=== PATIENT | male | born 2000 | race Caucasian/White ===

== ENCOUNTER 2020-07-18 16:47 | Outpatient (CLI) | payer OTHER, SELFPAY | END 2020-07-18 16:48 | disposition home or self-care (01) | LOC: ANHLAB 16:52 | PROVIDERS: PCP Family Medicine; Visit Provider Internal Medicine Gastroenterology | DX: R19.4 Change in bowel habit (principal) | CPT/HCPCS: 87045; 87046; 87177; 87209; 87324; 87427 ==

== ENCOUNTER 2021-05-30 12:18 | Emergency (ER) | payer OTHER, SELFPAY ==
[2021-05-30 12:25] VITALS: BP 139/96; PULSE 91; RESP 16; TEMP 36.2; O2SAT 99
--- NOTE | 2021-05-30 12:32 | ED.WOUNDLAC ---
HPI - Wound/Laceration History of Present Illness HPI narrative: Healthy 21 yo male presents [facility] c/ laceration. He was using a chainsaw today when it kiscked back and hit his right wong. He suffered a large laceration to the wong. He has moderate pain. Bleeding controlled. No weakness, numbness. Unknown when last tetanus shot was. Related Data Allergies Allergy/AdvReac Type Severity Reaction Status Date / Time Penicillins Allergy Unknown Verified 05/30/21 12:34 Review of Systems Review of Systems: All systems reviewed & are unremarkable except as noted in HPI and below [facility] Social History Social History (Updated 06/01/21 @ 15:12 by Dani Feliciano MD) Smoking status: Never smoker Gender identity (if verbalized by the patient): Male Exam Const: General: healthy appearing, no acute distress and alert Orientation/consciousness: patient oriented x3 HENMT: Head: normal to inspection Neck: Neck: normal visual inspection Resp: Effort & Inspection: normal respiratory effort Auscultation: clear to auscultation bilaterally, no rales, no rhonchi and no wheezes Cardio: Jugular venous distension: no JVD Rate: regular rate Rhythm: regular rhythm Heart sounds: no murmurs Other: 2+ right DP Skin: General skin exam: normal color Other: Complex 5 cm laceration to anterior aspect of the right lower leg Neuro: General: patient oriented x3 and moves all extremities Speech: normal speech Gait exam (Neuro): Normal gait present Other: distal motor and sensory intact Extrem: General: no edema Other: Full ROm. No deformity Psych: Appearance: well kempt Affect: normal affect Course Vital Signs Vital signs: Vital Signs Temperature 36.2 C L 05/30/21 12:25 Pulse Rate 91 05/30/21 12:25 Respiratory Rate 16 05/30/21 12:25 Blood Pressure 139/96 H 05/30/21 12:25 Pulse Oximetry 99 05/30/21 12:25 Temperature 36.2 C L 05/30/21 12:25 Pulse Rate 92 05/30/21 14:30 Respiratory Rate 16 05/30/21 14:30 Blood Pressure 136/90 05/30/21 14:30 Pulse Oximetry 99 05/30/21 14:30 Procedures Laceration Laceration 1: Site: lower extremity Side (If applicable): right Size (cm): 5 Description: irregular, contaminated and other (complex) Depth: involves muscle layer Local Anesthetic: lidocaine 1% and with epi Amount of anesthesia used (mL): 10 Pre-repair: wound explored, irrigated extensively (500 ml) and minor debridement ====== Skin Level ====== Skin layer closed with: nylon Size (cm): 4-0 Number of sutures: 14 Technique: simple, interrupted and running ====== Subcutaneous Layer ====== Subcutaneous layer closed with: vicryl Size: 4-0 Number of sutures: 9 Technique: simple, interrupted ====== Muscle Layer ====== Muscle layer closed with: vicryl Size: 4-0 Number of sutures: 2 Technique: simple, interrupted ====== Tendon Layer ====== MDM - Wound/Laceration MDM Narrative Medical decision making narrative: On exam there was minor involvement of the tibia. I wanted an x-ray, but he did not want to stay. I will treat with keflex for prophylaxis. Tetanus updated. Differential Diagnosis Differential diagnosis: Likely laceration Medical Records Attestation: I reviewed the patient's medical records. Discharge Plan Discharge Clinical Impression: Laceration of lower leg Patient Disposition: Home, Self-Care Condition: Stable Instructions: Care For Your Stitches (ED), Laceration (ED) Additional Instructions: follow up for suture removal in 2 weeks Prescriptions: New hydrocodone-acetaminophen 5-325 mg tablet 1 tablet PO Q6H PRN (Reason: pain) Qty: 5 RF: 0 clindamycin HCl 300 mg capsule 300 mg PO BID 7 Days Qty: 14 RF: 0 Follow-up/Referrals: Fernando Scott MD [Primary Care Provider] -
[2021-05-30] MEDS: CLINDAMYCIN HCL 150 MG CAP 300 MG PO (14:18)
[2021-05-30] MEDS: TETANUS,DIPHTHERIA,AC PERTUSSIS ADULT (0.5 ML) BOOSTRIX IM (14:18)
[2021-05-30 14:30] VITALS: BP 136/90; PULSE 92; RESP 16; O2SAT 99
--- NOTE | 2021-07-06 09:12 | PC.NURSE ---
LATE ENTRY This note is being entered to document information to the patient's record. The following information was omitted on [05/30/21], by [Oliva Nair ]. Incorrect wound injury location documented. Correct location should be Right lower wong not left.
== END 2021-05-30 14:31 | disposition home or self-care (01) ==
PROVIDERS: Emergency Provider Emergency Medicine; PCP Family Medicine
DX: S86.921A Laceration of unspecified muscle(s) and tendon(s) at lower leg level, right leg, initial encounter (principal); Z23 Encounter for immunization; W29.3XXA Contact with powered garden and outdoor hand tools and machinery, initial encounter
CPT/HCPCS: 13121; 90471; 90715; 96372; 99283; A9270

== ENCOUNTER 2021-12-25 15:49 | Emergency (ER) | payer OTHER, SELFPAY ==
--- NOTE | ~2021-12-25 | US_ITS ---
EXAMINATION: US scrotum doppler DATE: 12/25/2021 16:29 INDICATION: Testicular injury. TECHNIQUE: Grayscale and Doppler ultrasound images of the testes were obtained. COMPARISON: None. FINDINGS: The right testis measures 4.6 x 3.0 x 2.5 cm. The left testis measures 5.0 x 3.0 x 2.2 cm. There is normal vascular flow to both testes. Medial to the right testis, there is a 2.6 x 1.7 cm het erogeneous hyperechoic and isoechoic mass. The right epididymis is normal with normal vascular flow. The left epididymis is normal with normal vascular flow. There is no varicocele or hydrocele. IMPRESSION: 1. Mass medial to the right testis, likely a hematoma. Reviewed, dictated and finalized at location A.
--- NOTE | ~2021-12-25 | CT_ITS ---
EXAMINATION: CT abdomen pelvis w con DATE: 12/25/2021 17:15 INDICATION: Right pelvic pain. Trauma. TECHNIQUE: Computed tomography (CT) of the abdomen and pelvis was performed with 100 mL Omnipaque 350 intravenous contrast. Automated exposure control and iterative reconstruction technique were employe d. The dose-length product was 333.49 mGy-cm. COMPARISON: None. FINDINGS: The visualized portions of the lung bases are clear without pneumonia or pleural effusion. The heart size is normal. No pericardial effusion. The liver, gallbladder, spleen, pancreas, adrenal glands, and kidneys are normal. There are no dilated loops of bowel. The appendix is normal. There ar e no pathologically enlarged lymph nodes. There is no free intraperitoneal fluid. There is fat strand ing in the right inguinal canal and visualized portion of the scrotum. There is no fracture. IMPRESSION: 1. Fat stranding in the right inguinal canal and visualized portion of the scrotum, consistent with h ematoma. Reviewed, dictated and finalized at location A. IMPRESSION: 1. Fat stranding in the right inguinal canal and visualized portion of the scro lino, consistent with hematoma.
[2021-12-25 15:59] VITALS: BP 137/73; PULSE 80; RESP 16; TEMP 37.9; O2SAT 98
[2021-12-25] MEDS: MORPHINE SULFATE (*CRX) 4 MG/ML INJ IV PUSH (16:35)
[2021-12-25] MEDS: SODIUM CHLORIDE 0.9% IV 1,000 ML 999 ML IV CONT (16:35)
[2021-12-25 16:38] LABS: Basophils Percent Auto 0.6 % (0.2-1.2); Eosinophils Absolute Auto 0.1 K/mm3 (0-0.3); Eosinophils Percent Auto 1.1 % (0-4.4); Hematocrit 44.4 % (42.0-52.0); Hemoglobin 15.2 g/dL (14.0-18.0); Immature Granulocyte Absolute 0.02 K/mm3 (0.00-0.031); Immature Granulocyte Percent A 0.3 % (0-0.5); Lymphocytes Absolute Auto 2.64 K/mm3 (0.9-3.2); Lymphocytes Percent Auto 36.5 % (18.3-44.2); Mean Corpuscular HGB Conc 34.2 g/dl (32-36); Mean Corpuscular Volume 90.4 fl (80-100); Mean Platelet Volume 9.1 fl (7.4-10.4); Monocytes Absolute Auto 0.5 K/mm3 (0.1-0.6); Monocytes Percent Auto 6.9 % (2.6-8.5); Neutrophils Percent Auto 54.6 % (45.5-73.1); Platelet Count Result 218 k/mm3 (150-375); Red Blood Count 4.91 M/mm3 (4.6-6.20); Red Cell Distribution Width 12.8 % (11.5-14.5); White Blood Count 7.2 K/mm3 (4.5-10.0)
[2021-12-25 16:46] VITALS: BP 135/84; PULSE 89; RESP 18; O2SAT 99
[2021-12-25 16:50] LABS: Alanine Aminotransferase 17 U/L (4-50); Albumin Level 4.6 g/dL (3.5-5.1); Alkaline Phosphatase 49 U/L (38-126); Anion Gap 8 mmol/L (8-16); Aspartate Amino Transferase 30 U/L (17-59); Bilirubin,Total 0.7 mg/dL (0.2-1.3); Blood Urea Nitrogen 18 mg/dL (9-20); Calcium 8.9 mg/dL (8.4-10.2); Carbon Dioxide 27 mmol/L (22-30); Chloride 104 mmol/L (98-107); Creatine Kinase 159 U/L (55-170); Estimated CRCL calculation 123 ml/min; Estimated Glomerular Filt Rate > 60; Glucose 136 mg/dL (65-110); Potassium 4.1 mmol/L (3.4-5.0); Prothrombin Time 13.1 Seconds (11.1-14.7); Sodium 139 mmol/L (137-145)
[2021-12-25 16:51] LABS: Partial Thromboplastin Time 24.2 SECONDS (22.3-36.8)
[2021-12-25 17:57] LABS: Add Urine Microscopic? YES; Appearance Urine Cloudy (Clear); Bacteria Urine Trace /hpf; Bilirubin Urine Negative (Negative); Blood Urine Negative (Negative); Color Urine Yellow (Yellow); Glucose Urine UA Negative (Negative); Ketones Urine Negative (Negative); Leukocyte Esterase Ur Negative LEU/UL (Negative); Nitrate Urine Negative (Negative); Protein Urine Negative (Negative); Urobilinogen Urine Negative mg/dL (<2.0)
[2021-12-25 17:58] LABS: Specific Grav Ur 1.042 (1.001-1.035)
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
[2021-12-25 18:48] VITALS: TEMP 37
== END 2021-12-25 19:17 | disposition home or self-care (01) ==
PROVIDERS: Emergency Provider Emergency Medicine; PCP Family Medicine
DX: S30.22XA Contusion of scrotum and testes, initial encounter (principal); W23.0XXA Caught, crushed, jammed, or pinched between moving objects, initial encounter
CPT/HCPCS: 36415; 74177; 76870; 80053; 81001; 82550; 85025; 85610; 85730; 87086; 93976; 96361; 96374; 99284; J2270; J7030; Q9967

== ENCOUNTER 2023-06-26 14:04 | Emergency (ER) | payer OTHER, SELFPAY ==
--- NOTE | 2023-06-26 14:29 | ED.MALEGU ---
HPI - Male Genitourinary General Chief complaint: Urogenital-Male Stated complaint: poss std exposure Time Seen by Provider: 06/26/23 14:40 Source: patient and RN notes reviewed Mode of arrival: ambulatory Limitations: no limitations History of Present Illness HPI Narrative: 23-year-old male presents with concern for exposure to chlamydia. He was informed that a partner he was with about 2 weeks ago tested positive for chlamydia. He denies any dysuria, penile discharge, abdominal pain, fever or any other symptoms. MD Complaint: possible STD exposure Related Data Allergies Allergy/AdvReac Type Severity Reaction Status Date / Time Penicillins AdvReac Mild Hives Verified 06/26/23 14:43 Review of Systems Review of Systems: CONSTITUTIONAL: Denies malaise, chills, sweats, or fever. CARDIOVASCULAR: Denies chest pain, palpitations, or edema. RESPIRATORY: Denies cough or dyspnea. GASTROINTESTINAL: Denies abdominal pain, nausea, vomiting, diarrhea GENITOURINARY: My dysuria, frequency, urgency, suprapubic pressure, penile discharge or lesions. Denies flank pain or hematuria. SKIN: Denies rash or itching. MUSCULOSKELETAL: Denies back pain or myalgia. All systems reviewed & are unremarkable except as noted in HPI and below PMFSH Comments At time of signature, agree with nursing past medical, surgical, social and family history. There is no relevant family history pertinent to the presenting complaint Exam Narrative: GENERAL: Well-appearing, well-nourished, and in no acute distress. HEAD: Normocephalic. EYES: PERRLA, conjunctivae clear. NECK: Supple. No lymphadenopathy CHEST: Clear to auscultation. No respiratory distress. HEART: Regular rate and rhythm. SKIN: Warm, dry, no rash. NEURO: Alert and oriented x3. PSYCH: Normal mood and affect Course Course Emergency Course: Patient only wants to be treated for chlamydia today, he understands that he may need to return for an injection if he is positive for gonorrhea Patient is aware of diagnosis, understands and agrees to treatment plan. Anticipatory guidance given. Patient agrees to follow-up as directed and is aware of reasons to seek care at the emergency department. Portions of this record may have been created with voice recognition software Level of Care: Express Care Visit Vital Signs Vital signs: Reviewed. Critical Care Time Critical Care Time Critical Care Time: No Discharge Plan Discharge Clinical Impression: Exposure to STD Patient Disposition: Home, Self-Care Condition: Stable Instructions: Antibiotic Form, Safe Sex Practices (ED) Additional Instructions: You have been tested for potential gonorrhea, chlamydia, and trichomoniasis today. A prescription has been called into your pharmacy to treat chlamydia. You will receive a phone call in 2-3 days with the results of today's testing and if any further treatment is required able be prescribed at that time, you may need to return for an injection.. It is very important that you avoid unprotected intercourse during treatment and for 7 days AFTER TREATMENT is complete and until your partner(s) have been treated. Please encourage your partner(s) to seek testing and treatment. When you have been exposed to sexually transmitted infections, it is important that you seek comprehensive testing, since we do not provide testing for all sexually transmitted infections. Some infections can have no symptoms, but cause serious health problems. Contact your health care provider or report to the emergency department if: You have genital swelling or pain, or unusual bleeding. You have joint pain, rash, swollen lymph nodes or night sweats. You are severe abdominal pain. You have a fever. Symptoms do not go away or they get worse even after treatment. You have bleeding or pain during sex. Prescriptions: New doxycycline monohydrate 100 mg tablet 100 mg PO BID 7 Days Qty: 14 0RF Follow-up/Referrals:
[2023-06-26 14:30] VITALS: BP 124/68; PULSE 73; RESP 16; TEMP 36.8; O2SAT 99
[2023-06-26 20:22] LABS: Trichomonas Vag PCR NOT DETECTED (NOT DETECTE)
[2023-06-26 20:47] LABS: Chlamydia trachomatis NOT DETECTED (NOT DETECTE); Neisseria gonorrhoeae PCR NOT DETECTED (NOT DETECTE)
== END 2023-06-26 14:52 | disposition home or self-care (01) ==
PROVIDERS: Emergency Provider Nurse Practitioner; PCP Family Medicine
DX: Z20.2 Contact with and (suspected) exposure to infections with a predominantly sexual mode of transmission (principal)
CPT/HCPCS: 81003; 87491; 87591; 87661; 99203; G0463

== ENCOUNTER 2024-05-11 12:56 | Emergency (ER) | payer OTHER, SELFPAY ==
[2024-05-11 13:06] VITALS: BP 125/69; PULSE 66; RESP 18; TEMP 36.6; O2SAT 98
--- NOTE | 2024-05-11 13:11 | ED.ABDPAIN ---
HPI - Abdominal Pain General Chief Complaint: Abdominal Pain Stated Complaint: abdominal pain Time Seen by Provider: 05/11/24 13:11 Source: patient, RN notes reviewed and old records reviewed Mode of arrival: ambulatory Limitations: no limitations History of Present Illness HPI narrative: patient presents with complaints of left lower quadrant pain for 2 days, worsening. He reports pain awakened him from sleep, reports that he is having difficulty standing up straight at work due to his pain, is having tenderness to palpation. He further reports that he has had change in bowel pattern over the past couple of days, small frequent bowel movements. Reports this is not normal for him. He denies any nausea or vomiting. He denies any fever, chills, sweats. Patient does work trimming trees, he denies any injury or trauma, including abdominal trauma. Related Data Home Medications Medication Instructions Recorded Confirmed No Home Medications 05/11/24 05/11/24 Allergies Allergy/AdvReac Type Severity Reaction Status Date / Time Penicillins Allergy Mild Hives Verified 05/11/24 13:17 Review of Systems Review of Systems: All systems reviewed & are unremarkable except as noted in HPI and below Constitutional: Constitutional: Reports no additional constitutional complaints ENT: Reports system reviewed and no additional complaints, except as documented Cardiovascular: Cardiovascular: Reports no additional cardiovascular complaints Respiratory: Respiratory: Reports no additional respiratory complaints Gastrointestinal: Gastrointestinal: Reports as per HPI, Reports abdominal pain, Reports change in bowel habits, Reports change in stool character, Reports excessive flatus, Denies diarrhea, Reports loose stools, Denies nausea and Denies vomiting Genitourinary: Genitourinary: Reports no additional male genitourinary complaints PMFSH Past Medical History Medical History Patient denies significant medical history Social History Social History Smoking status: Never smoker Gender identity (if verbalized by the patient): Male Comments At the time of my signature, I reviewed and agree with the nursing past medical, surgical, social, and family history. There is no relevant family history pertinent to the patient complaint. Exam Const: General: cooperative, no acute distress, alert and awake Orientation/consciousness: oriented to person, oriented to place and oriented to time HENMT: Head: normal to inspection Resp: Effort & Inspection: normal respiratory effort and able to speak in complete sentences Auscultation: clear to auscultation bilaterally, no crackles, no rales, no rhonchi and no wheezes Cardio: Palpation: normal PMI Rate: regular rate Rhythm: regular rhythm Heart sounds: S1 normal heart sound present and S2 normal heart sound present GI: Inspection: normal to inspection GI Palp: Yes abdominal tenderness (llq), Yes Tenderness to palpation present (GI) (LLQ) and Yes Guarding due to palpation present (GI) (LLQ) Auscultation: Hypoactive bowel sounds present Neuro: General: oriented to person, oriented to place and oriented to time Cranial nerves: Yes CN's II-XII intact bilaterally Psych: Appearance: grossly normal Thought process: Normal thought process present Insight: Good insight present (Psych) Judgement: Good judgement present (Psych) Course Course Level of Care: Express Care Visit Vital Signs Vital signs: Vital Signs Temperature 98 F 05/11/24 13:06 Pulse Rate 66 05/11/24 13:06 Respiratory Rate 18 05/11/24 13:06 Blood Pressure 125/69 05/11/24 13:06 Pulse Oximetry 98 05/11/24 13:06 Oxygen Delivery Room Air 05/11/24 13:06 Temperature 98 F 05/11/24 13:06 Pulse Rate 66 05/11/24 13:06 Respiratory Rate 18 05/11/24 13:06 Blood Pressure 125/69 05/11/24 13:0
== END 2024-05-11 13:30 | disposition left against medical advice (07) ==
PROVIDERS: Emergency Provider Nurse Practitioner Family; PCP Family Medicine
DX: R10.32 Left lower quadrant pain (principal)
CPT/HCPCS: 99211; G0463

== ENCOUNTER 2024-05-11 13:45 | Emergency (ER) | payer OTHER, SELFPAY ==
--- NOTE | ~2024-05-11 | CT_ITS ---
EXAMINATION: CT abdomen pelvis w con DATE: 05/11/2024 14:59 INDICATION: Left lower quadrant abdominal pain. TECHNIQUE: Computed tomography (CT) of the abdomen and pelvis was performed with 100 mL Omnipaque 350 intravenous contrast. Automated exposure control and iterative reconstruction technique were employe d. The dose-length product was 450.27 mGy-cm. COMPARISON: None. FINDINGS: The visualized portions of the lung bases demonstrate mild atelectasis. No pleural effusion . The heart size is normal. No pericardial effusion. The liver, gallbladder, spleen, pancreas, adrena l glands, and kidneys are normal. There are no dilated loops of bowel. There is fat stranding around an epiploic appendage of sigmoid colon, consistent with epiploic appendagitis. The appendix is normal . There are no pathologically enlarged lymph nodes. There is no free intraperitoneal fluid. There is mild chronic anterior wedging of T11 and T12 vertebral bodies. IMPRESSION: 1. Epiploic appendagitis of the sigmoid colon. Reviewed, dictated and finalized at location A.
[2024-05-11 13:46] VITALS: BP 126/86; PULSE 66; RESP 16; TEMP 36.7; O2SAT 99
--- NOTE | 2024-05-11 14:13 | ED.ABDPAIN ---
HPI - Abdominal Pain General Chief Complaint: Abdominal Pain Stated Complaint: LLQ pain Time Seen by Provider: 05/11/24 13:54 History of Present Illness HPI narrative: 24-year-old male presented to the emergency department for evaluation for 2 days of left lower quadrant pain. Patient denies any associated nausea vomiting constipation or diarrhea. Patient denies any prior history of abdominal surgeries. Patient denies any prior similar pain. Related Data Home Medications Medication Instructions Recorded Confirmed No Home Medications 05/11/24 05/11/24 Allergies Allergy/AdvReac Type Severity Reaction Status Date / Time Penicillins Allergy Mild Hives Verified 05/11/24 13:17 Review of Systems Review of Systems: All systems reviewed & are unremarkable except as noted in HPI and below PMFSH Past Medical History Medical History Patient denies significant medical history Social History Social History Smoking status: Never smoker Gender identity (if verbalized by the patient): Male Exam Narrative: APPEARANCE: Well appearing, no pain, no distress, well-nourished. HEAD: normocephalic, atraumatic. EYES: PERRLA/EOMI, conjunctivae clear. NOSE: Normal no drainage EARS:TMS clear with good light reflex. THROAT: Pharynx clear, no exudate. NECK: Supple. No adenopathy, no masses. RESPIRATORY: Airway patent, respirations nonlabored. Clear to auscultation bilaterally, no rales, rhonchi, wheezing. CARDIOVASCULAR: Regular rate and rhythm without murmurs rubs or gallops. ABDOMINAL: Left lower quadrant tenderness to palpation MUSCULOSKELETAL: Moves all extremities. Strength/ROM intact, No edema, No calf tenderness. NEURO: Alert. Cranial nerves II through XII intact. Grossly intact SKIN: Warm, dry. Normal Color Course Course Emergency Course: Patient was diagnosed with epiploic appendagitis, updated on the results of his workup and treatment plan for home. Vital Signs Vital signs: Vital Signs Temperature 98.1 F 05/11/24 13:46 Pulse Rate 66 05/11/24 13:46 Respiratory Rate 16 05/11/24 13:46 Blood Pressure 126/86 05/11/24 13:46 Pulse Oximetry 99 05/11/24 13:46 Oxygen Delivery Room Air 05/11/24 13:46 Temperature 98.1 F 05/11/24 13:46 Pulse Rate 70 05/11/24 15:27 Respiratory Rate 18 05/11/24 15:27 Blood Pressure 130/77 05/11/24 15:27 Pulse Oximetry 100 05/11/24 15:27 Oxygen Delivery Room Air 05/11/24 13:46 MDM - Abdominal Pain MDM Narrative Medical decision making narrative: 24-year-old male presents to the emergency department for evaluation of 2 days of left lower quadrant pain. Patient is afebrile with no ptosis and a stable hemoglobin of 16.6. Patient has no acute abnormalities on his CMP. UA was negative for infection. Patient does have reproducible left lower quadrant tenderness to palpation. CT scan was ordered to evaluate for colitis/diverticulitis/appendicitis. CT scan was positive for epiploic appendagitis. Patient was updated on the results of his workup. Patient was advised on treatment plan for home. All questions concerns were addressed. Patient was well-appearing at time of discharge. Differential Diagnosis Differential diagnosis: Likely abdominal pain, constipation, diverticulitis, gastroenteritis, pancreatitis and small bowel obstruction Lab Data Attestation: I reviewed the patient's lab results. 05/11/24 14:04 05/11/24 14:04 Labs: Lab Results 05/11/24 05/11/24 Range/Units 14:04 14:09 WBC 9.9 (4.5-10.0) K/mm3 RBC 5.31 (4.6-6.20) M/mm3 Hgb 16.6 (14.0-18.0) g/dL Hct 47.6 (42.0-52.0) % MCV 89.6 (80-100) fl MCH 31.3 (26-34) pg MCHC 34.9 (32-36) g/dl RDW 12.2 (11.5-14.5) % Plt Count 196 (150-375) k/mm3 MPV 9.4 (7.4-10.4) fl Immature Gran % (Auto) 0.3 (0-0.
[2024-05-11 14:18] LABS: Basophils Absolute Auto 0.1 K/mm3 (0.0-0.1); Basophils Percent Auto 0.7 % (0.2-1.2); Eosinophils Absolute Auto 0.2 K/mm3 (0-0.3); Eosinophils Percent Auto 1.5 % (0-4.4); Hematocrit 47.6 % (42.0-52.0); Hemoglobin 16.6 g/dL (14.0-18.0); Immature Granulocyte Absolute 0.03 K/mm3 (0.00-0.031); Immature Granulocyte Percent A 0.3 % (0-0.5); Lymphocytes Percent Auto 25.4 % (18.3-44.2); Mean Corpuscular HGB Conc 34.9 g/dl (32-36); Mean Corpuscular Hemoglobin 31.3 pg (26-34); Mean Corpuscular Volume 89.6 fl (80-100); Mean Platelet Volume 9.4 fl (7.4-10.4); Monocytes Absolute Auto 0.7 K/mm3 (0.1-0.6); Monocytes Percent Auto 6.9 % (2.6-8.5); Neutrophils Absolute Auto 6.4 K/mm3 (1.3-6.7); Neutrophils Percent Auto 65.2 % (45.5-73.1); Platelet Count Result 196 k/mm3 (150-375); Red Blood Count 5.31 M/mm3 (4.6-6.20); Red Cell Distribution Width 12.2 % (11.5-14.5); White Blood Count 9.9 K/mm3 (4.5-10.0)
[2024-05-11 14:19] LABS: Appearance Urine Clear (Clear); Bilirubin Urine Negative (Negative); Blood Urine Negative (Negative); Color Urine Yellow (Yellow); Glucose Urine UA Negative (Negative); Ketones Urine Negative (Negative); Leukocyte Esterase Ur Negative LEU/UL (Negative); Nitrate Urine Negative (Negative); Protein Urine Negative (Negative); Urobilinogen Urine 0.2 mg/dL (<2.0)
[2024-05-11 14:19] LABS: Alanine Aminotransferase 39 U/L (6-50); Albumin Level 4.7 g/dL (3.5-5.1); Alkaline Phosphatase 66 U/L (38-126); Anion Gap 10 mmol/L (4-12); Aspartate Amino Transferase 27 U/L (17-59); Bilirubin,Total 0.9 mg/dL (0.2-1.3); Blood Urea Nitrogen 13 mg/dL (9-20); Calcium 9.4 mg/dL (8.4-10.2); Carbon Dioxide 24 mmol/L (22-30); Chloride 102 mmol/L (98-107); Estimated CRCL calculation 120 ml/min; Estimated Glomerular Filt Rate > 60; Glucose 93 mg/dL (65-110); Lipase 27 U/L (23-300); Sodium 136 mmol/L (137-145)
[2024-05-11 14:35] LABS: Add Urine Microscopic? NO
[2024-05-11 15:27] VITALS: BP 130/77; PULSE 70; RESP 18; O2SAT 100
== END 2024-05-11 15:28 | disposition home or self-care (01) ==
PROVIDERS: Emergency Provider Emergency Medicine; PCP Family Medicine
DX: K63.89 Other specified diseases of intestine (principal)
CPT/HCPCS: 36415; 74177; 80053; 81003; 83690; 85025; 99284; Q9967

== ENCOUNTER 2024-10-01 12:02 | Emergency (ER) | payer SELFPAY ==
--- NOTE | ~2024-10-01 | CT_ITS ---
EXAMINATION: CT chest abdomen pelvis w con DATE: 10/01/2024 13:24 INDICATION: Fall from roof with left flank pain TECHNIQUE: Computed tomography (CT) of the chest, abdomen, and pelvis was performed with 100 mL Omnip aque-350 intravenous contrast. Automated exposure control and iterative reconstruction technique were employed. The dose-length product was 970.26 mGy-cm. COMPARISON: None FINDINGS: CHEST CT: Tiny ovoid collection of gas along the inferior right major fissure which could represent a minute pn eumothorax or small pneumatocele new since the prior study. Few additional tiny foci of gas along the anterior mediastinal fat anterior to the heart and posterior to the sternum. Tiny focus of gas along the medial margin of the left posterior lower lobe which appears more likely in the mediastinal spac e and in the left pleural space. Tiny focus of gas posterior to the wall of the left mainstem bronchu s. Minimal atelectasis at the posterior sulcus of the left lower lobe. No pneumonia, pulmonary edema, pulmonary hemorrhage, pleural effusion or left-sided pneumothorax. Heart size is normal. No pericard ial effusion. Thoracic aorta is normal in caliber with no evident acute traumatic aortic injury. Ther e is small amount of residual thymic tissue in the anterior mediastinum. No pathologically enlarged t horacic lymphadenopathy. Minimal thoracic spondylosis with chronic appearing mild anterior wedging at T11 and T12. No rib fractures or other acute osseous abnormality in the thorax. ABDOMEN/PELVIS CT: Mild focal hepatic steatosis along the ligamentum teres. Gallbladder, spleen, pancreas, bilateral adr enal glands and kidneys are normal. Bowels including the appendix are normal. Bladder is normal. No f ree intraperitoneal gas or fluid. No pathologically enlarged abdominal or pelvic lymphadenopathy. Vas culature in the abdomen and pelvis is unremarkable. A couple small bilateral periacetabular bone mason nds. No acute osseous abnormality. IMPRESSION: 1. Tiny focus of gas along the right major fissure consistent with a minute right pneumothorax versus small pneumatocele. 2. Additional tiny foci of gas along the anterior mediastinum, the posterior mediastinum along the me dial margin of the left lower lobe and posterior the left mainstem bronchus. Distribution suggests mi nimal pneumomediastinum potentially related to tracheal versus less likely esophageal injury. 3. No acute vascular injury or acute intra-abdominal/pelvic process. 4. No acute osseous abnormality of the chest, abdomen or pelvis. Reviewed, dictated and finalized at location A. CTURED CABLING TECHNICIAN IMPRESSION: 1. Tiny focus of gas along the right major fissure consistent with a minute rig ht pneumothorax versus small pneumatocele. 2. Additional tiny foci of gas along the anterior mediastinum, the posterior me diastinum along the medial margin of the left lower lobe and posterior the left mainstem bronchus. Distribution suggests minimal pneumomediastinum potentially related to tracheal versus less likely esophageal injury. 3. No acute vascular injury or acute intra-abdominal/pelvic process. 4. No acute osseous abnormality of the chest, abdomen or pelvis.
--- NOTE | ~2024-10-01 | XR_ITS ---
XR wrist RT min 3V 10/01/2024 13:30 Indication: Right wrist pain after fall from roof Procedure: 3 views right wrist Comparison: No prior studies for comparison. Findings: There is a mildly displaced radial styloid fracture. No other fracture is identified. Scaph oid intact. No soft tissue abnormality. Impression: 1: Mildly displaced radial styloid fracture. Reviewed, dictated and finalized at location B. INE REPAIRER MAINTENANCE Impression: 1: Mildly displaced radial styloid fracture.
--- NOTE | ~2024-10-01 | XR_ITS ---
XR wrist LT min 3V 10/01/2024 13:30 Indication: Left wrist pain after fall Procedure: 3 views left wrist Comparison: No prior studies for comparison. Findings: There is a comminuted displaced distal radial fracture with intra-articular extension. Ther e are multiple displaced fracture fragments dorsally with dorsal tilt of the radiocarpal joint. There is a displaced ulnar styloid fracture Impression: 1: Comminuted displaced distal radial fracture with intra-articular extension. 2: Displaced ulnar styloid fracture. Reviewed, dictated and finalized at location B. RIAL CONTROL MANAGER Impression: 1: Comminuted displaced distal radial fracture with intra-articular extension. 2: Displaced ulnar styloid fracture.
--- NOTE | ~2024-10-01 | CT_ITS ---
EXAMINATION: CT brain wo con, CT facial & cervical spine wo DATE: 10/01/2024 13:24 INDICATION: Trauma EXAMINATION: 1. CT brain wo con 2. CT facial & cervical spine wo DATE: 10/01/2024 13:24 INDICATION: Head injury post fall from roof TECHNIQUE: 1. Computed tomography (CT) of the head was performed without intravenous contrast. Sagittal and arash nal reconstructions were obtained. The dose-length product was 605.33 mGy-cm. 2. CT of the facial bones and maxillofacial region was performed without intravenous contrast. Sagitt al and coronal reconstructions were obtained. The dose-length product was 434.96 mGy-cm. COMPARISON: None. FINDINGS: Head CT: No calvarial fracture. No acute intracranial hemorrhage, acute infarction or abnormal extra axial flu id collection. Ventricles are normal and symmetric. No mass/mass effect. Maxillofacial CT: Left zygomaticomaxillary complex fracture with comminuted fractures occurring at 3 locations along th e left zygomatic arch. There is no displacement but mild angulation resulting in inward buckling of t he midportion of the arch. Additional subtle nondisplaced fracture lines are seen involving the anter ior and lateral julien of the left maxillary sinus and the lateral and inferior julien of the left orbi t. Orbits remain otherwise normal with intact appearing globes and no intraorbital stranding, hematom a or gas. Small amount of blood in the dependent left maxillary sinus. No other maxillofacial fractur es identified. Specifically the nasal bones, right zygomatic arch, mandible and remaining julien of th e orbits and paranasal sinuses are all intact. Nasal septum remains midline without fracture. 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 The right temporomandibular joint is normal. Cervical spine CT: Alignment is normal. Vertebral body and disc heights are normal. No fracture. Multilevel minimal to m ild cervical facet and uncovertebral osteoarthritis. No central canal or neural foraminal stenosis. IMPRESSION: 1. Nondisplaced left zygomaticomaxillary complex fracture. 2. No calvarial fracture or acute intracranial process. 3. Minimal to mild cervical facet and uncovertebral osteoarthritis. No acute osseous abnormality. Reviewed, dictated and finalized at location A. UR MARKET ECONOMIST IMPRESSION: 1. Nondisplaced left zygomaticomaxillary complex fracture. 2. No calvarial fracture or acute intracranial process. 3. Minimal to mild cervical facet and uncovertebral osteoarthritis. No acute os seous abnormality.
[2024-10-01 12:08] VITALS: BP 144/93; PULSE 64; RESP 15; TEMP 36.5; O2SAT 99
--- NOTE | 2024-10-01 12:39 | ED.GENADULT ---
HPI - General Adult General Chief complaint: Fall Stated complaint: fell 10-15ft, wrist injuries Time Seen by Provider: 10/01/24 12:06 History of Present Illness HPI narrative: 24-year-old male presenting to the emergency department for evaluation after having a fall from a roof approximately 10 feet in height. Patient does have deformity to left wrist complaint of pain to the right wrist, complain of pain to the left flank and tenderness to right ankle. Related Data Home Medications ?Medication ?Instructions ?Recorded ?Confirmed ?Last Taken ?Type No Home Medications 05/11/24 05/11/24 Unknown History Allergies Allergy/AdvReac Type Severity Reaction Status Date / Time Penicillins Allergy Mild Hives Verified 10/01/24 12:25 Review of Systems Review of Systems: All systems reviewed & are unremarkable except as noted in HPI and below PMFSH Past Medical History Medical History Patient denies significant medical history Social History Social History Smoking status: Never smoker Gender identity (if verbalized by the patient): Male Exam Narrative: APPEARANCE: Well appearing, no pain, no distress, well-nourished. HEAD: normocephalic, atraumatic. EYES: PERRLA/EOMI, conjunctivae clear. NOSE: Normal no drainage EARS:TMS clear with good light reflex. THROAT: Pharynx clear, no exudate. NECK: Supple. No adenopathy, no masses. RESPIRATORY: Airway patent, respirations nonlabored. Clear to auscultation bilaterally, no rales, rhonchi, wheezing. CARDIOVASCULAR: Regular rate and rhythm without murmurs rubs or gallops. ABDOMINAL: Soft, nontender, nondistended, normal bowel sounds MUSCULOSKELETAL: Deformity to left wrist, neurovascularly intact NEURO: Alert. Cranial nerves II through XII intact. Good gait. Good coordination SKIN: Warm, dry. Normal Color Course Vital Signs Vital signs: Vital Signs Temperature 97.7 F 10/01/24 12:08 Pulse Rate 64 10/01/24 12:08 Respiratory Rate 15 10/01/24 12:08 Blood Pressure 144/93 H 10/01/24 12:08 Pulse Oximetry 99 10/01/24 12:08 Oxygen Delivery Room Air 10/01/24 12:08 Temperature 98.6 F 10/01/24 17:39 Pulse Rate 89 10/01/24 17:39 Respiratory Rate 15 10/01/24 17:39 Blood Pressure 133/82 10/01/24 17:39 Pulse Oximetry 98 10/01/24 17:39 Oxygen Delivery Room Air 10/01/24 12:08 Medical Decision Making MDM Narrative Medical decision making narrative: 24-year-old male present to the emergency department for evaluation for a fall from a height of 10-15 feet. Patient is afebrile with no leukocytosis and hemoglobin of 16.5. Facial CT was concerning for zygomatic fracture, patient does have a minute pneumothorax and minimal pneumomediastinum. Case was discussed with the trauma team [facility] and patient was accepted for transfer. Patient was stable at time of transfer. Patient family updated on the results of the workup and plan for transfer Differential Diagnosis Differential Diagnosis: Subdural hematoma, subarachnoid hemorrhage, skull fracture, facial fracture, pneumothorax, pneumomediastinum, pneumonia, hollow viscus injury Vital Signs Vital Signs: Vital Signs Temperature 97.7 F 10/01/24 12:08 Pulse Rate 64 10/01/24 12:08 Respiratory Rate 15 10/01/24 12:08 Blood Pressure 144/93 H 10/01/24 12:08 Pulse Oximetry 99 10/01/24 12:08 Oxygen Delivery Room Air 10/01/24 12:08 Temperature 98.6 F 10/01/24 17:39 Pulse Rate 89 10/01/24 17:39 Respiratory Rate 15 10/01/24 17:39 Blood Pressure 133/82 10/01/24 17:39 Pulse Oximetry 98 10/01/24 17:39 Oxygen Delivery Room Air 10/01/24 12:08 Lab Data Lab results reviewed: Yes I reviewed the patient's lab results. 10/01/24 12:47 10/01/24 12:47 Labs: Lab Results 10/01/24 Range/Units 12:47 WBC 7.7 (4.5-10.0) K/mm3 RBC 5.33 (4.6-6.20) M/mm3 Hgb 16.5 (14.0-18.0) g/dL Hct 47.0 (42.0-52.0) % MCV 88.2 (80-100) fl MCH 31.0 (26-34) pg MCHC 35.1 (32-36) g/dl RDW 12.4 (11.5-14.5) % Plt Count 210 (150-375) k/mm3 MPV 9.8 (7.4-10.4) fl Immature Gran % (Auto) 0.3 (0-0.5) % Neut % (Auto) 49.6 (45.5-73.1) % Lymph % (Auto) 41.4 (18.3-44.2) % [place] % (Auto) 6.9 (2.6-8.5) % Eos % (Auto) 1.0 (0-4.4) % Baso % (Auto) 0.8 (0.2-1.2) % Lymph # (Auto) 3.17 (0.9-3.2) K/mm3 [place] # (Auto) 0.5 (0.1-0.6) K/mm3 Eos # (Auto) 0.1 (0-0.3) K/mm3 Baso # (Auto) 0.1 (0.0-0.1) K/mm3 Abs Immat Gran (auto) 0.02 (0.00-0.031) K/mm3 Absolute Neuts (auto) 3.8 (1.3-6.7) K/mm3 Absolute Nucleated RBC 0.000 (0.0-0.012) K/mm3 Nucleated RBC % 0.0 (0.0-0.2) % PT 13.5 (11.1-14.7) Seconds INR 1.0 APTT 25.2 (22.3-36.8) Seconds Sodium 136 L (137-145) mmol/L Potassium 3.6 (3.4-5.0) mmol/L Chloride 106 (98-107) mmol/L Carbon Dioxide 24 (22-30) mmol/L Anion Gap 6 (4-12) mmol/L BUN 16 (9-20) mg/dL Creatinine 1.00 (0.7-1.3) mg/dL Estim Creat Clear Calc 105 ml/min Estimated GFR > 60 (59 - ) Glucose 108 (65-110) mg/dL Calcium 9.4 (8.4-10.2) mg/dL Total Bilirubin 1.3 (0.2-1.3) mg/dL AST 35 (17-59) U/L ALT 33 (6-50) U/L Alkaline Phosphatase 62 (38-126) U/L Total Protein 8.0 (6.3-8.2) g/dL Albumin 5.0 (3.5-5.1) g/dL Imaging Data Radiologist's impression: Impressions Head CT 10/01/24 13:33 IMPRESSION: 1. Nondisplaced left zygomaticomaxillary complex fracture. 2. No calvarial fracture or acute intracranial process. 3. Minimal to mild cervical facet and uncovertebral osteoarthritis. No acute osseous abnormality. Head/Cervical Spine/Facial Bones CT 10/01/24 13:33 IMPRESSION: 1. Nondisplaced left zygomaticomaxillary complex fracture. 2. No calvarial fracture or acute intracranial process. 3. Minimal to mild cervical facet and uncovertebral osteoarthritis. No acute osseous abnormality. Wrist X-Ray 10/01/24 13:34 Impression: 1: Mildly displaced radial styloid fracture. Wrist X-Ray 10/01/24 13:35 Impression: 1: Comminuted displaced distal radial fracture with intra-articular extension. 2: Displaced ulnar styloid fracture. Chest/Abdomen/Pelvis CT 10/01/24 13:51 IMPRESSION: 1. Tiny focus of gas along the right major fissure consistent with a minute right pneumothorax versus small pneumatocele. 2. Additional tiny foci of gas along the anterior mediastinum, the posterior mediastinum along the medial margin of the left lower lobe and posterior the left mainstem bronchus. Distribution suggests minimal pneumomediastinum potentially related to tracheal versus less likely esophageal injury. 3. No acute vascular injury or acute intra-abdominal/pelvic process. 4. No acute osseous abnormality of the chest, abdomen or pelvis. Discharge Plan Discharge Clinical Impression: Fracture of wrist, Zygomatic fracture, Pneumomediastinum, Pneumothorax Patient Disposition: Acute Care Hospital Condition: Serious Patient Language: Montenegrin Prescriptions: No Action No Home Medications Follow-up/Referrals: Fernando Scott MD [Primary Care Provider] -
[2024-10-01] MEDS: HYDROmorphone HCL INJ (*CRX) 1 MG/ML SYR 0.5 MG IV PUSH ×2 (12:42→15:33)
[2024-10-01 12:53] LABS: Basophils Absolute Auto 0.1 K/mm3 (0.0-0.1); Basophils Percent Auto 0.8 % (0.2-1.2); Eosinophils Absolute Auto 0.1 K/mm3 (0-0.3); Hemoglobin 16.5 g/dL (14.0-18.0); Immature Granulocyte Absolute 0.02 K/mm3 (0.00-0.031); Immature Granulocyte Percent A 0.3 % (0-0.5); Lymphocytes Absolute Auto 3.17 K/mm3 (0.9-3.2); Lymphocytes Percent Auto 41.4 % (18.3-44.2); Mean Corpuscular HGB Conc 35.1 g/dl (32-36); Mean Corpuscular Volume 88.2 fl (80-100); Mean Platelet Volume 9.8 fl (7.4-10.4); Monocytes Absolute Auto 0.5 K/mm3 (0.1-0.6); Monocytes Percent Auto 6.9 % (2.6-8.5); Neutrophils Absolute Auto 3.8 K/mm3 (1.3-6.7); Neutrophils Percent Auto 49.6 % (45.5-73.1); Platelet Count Result 210 k/mm3 (150-375); Red Blood Count 5.33 M/mm3 (4.6-6.20); Red Cell Distribution Width 12.4 % (11.5-14.5); White Blood Count 7.7 K/mm3 (4.5-10.0)
[2024-10-01 13:03] LABS: Alanine Aminotransferase 33 U/L (6-50); Alkaline Phosphatase 62 U/L (38-126); Anion Gap 6 mmol/L (4-12); Aspartate Amino Transferase 35 U/L (17-59); Bilirubin,Total 1.3 mg/dL (0.2-1.3); Blood Urea Nitrogen 16 mg/dL (9-20); Calcium 9.4 mg/dL (8.4-10.2); Carbon Dioxide 24 mmol/L (22-30); Chloride 106 mmol/L (98-107); Estimated CRCL calculation 105 ml/min; Estimated Glomerular Filt Rate > 60; Glucose 108 mg/dL (65-110); Potassium 3.6 mmol/L (3.4-5.0); Sodium 136 mmol/L (137-145)
[2024-10-01 13:18] LABS: Prothrombin Time 13.5 Seconds (11.1-14.7)
[2024-10-01 13:19] LABS: Partial Thromboplastin Time 25.2 Seconds (22.3-36.8)
[2024-10-01 13:52] VITALS: BP 139/93; PULSE 80; RESP 15; O2SAT 100
[2024-10-01 15:52] VITALS: BP 135/77; PULSE 80; RESP 15; O2SAT 99
[2024-10-01] MEDS: ONDANSETRON INJ 4 MG/2 ML VIAL IV PUSH (15:52)
[2024-10-01] MEDS: SODIUM CHLORIDE 0.9% IV 1,000 ML 999 ML IV CONT (16:07)
[2024-10-01 17:39] VITALS: BP 133/82; PULSE 89; RESP 15; TEMP 37; O2SAT 98
== END 2024-10-01 17:39 | disposition short-term general hospital (02) ==
PROVIDERS: Emergency Provider Emergency Medicine; PCP Family Medicine
DX: S52.572A Other intraarticular fracture of lower end of left radius, initial encounter for closed fracture (principal); S52.612A Displaced fracture of left ulna styloid process, initial encounter for closed fracture; S52.511A Displaced fracture of right radial styloid process, initial encounter for closed fracture; S02.40FA Zygomatic fracture, left side, initial encounter for closed fracture; T79.7XXA Traumatic subcutaneous emphysema, initial encounter; S27.0XXA Traumatic pneumothorax, initial encounter; W13.2XXA Fall from, out of or through roof, initial encounter
CPT/HCPCS: 29125; 36415; 70450; 70486; 71260; 72125; 73110; 74177; 80053; 85025; 85610; 85730; 96361; 96374; 96375; 99284; J1171; J2405; J7030; Q9967

== ENCOUNTER 2025-06-04 09:46 | Emergency (ER) | payer SELFPAY ==
--- NOTE | 2025-06-04 09:50 | ED.EYEPROB ---
HPI - Eye Problem General Chief complaint: Eye Problems Stated complaint: R eye irritation Time Seen by Provider: 06/04/25 10:19 Source: patient and RN notes reviewed Mode of arrival: ambulatory Limitations: no limitations History of Present Illness HPI Narrative: 25-year-old male presents with concern for eye injury to the right eye. Reports today at work he had a stick poked in the eye. He reports occasional blurry vision. He reports some light sensitivity. He denies drainage. chief complaint: eye redness Related Data Allergies Allergy/AdvReac Type Severity Reaction Status Date / Time Penicillins Allergy Mild Hives Verified 06/04/25 09:59 Review of Systems Review of Systems: CONSTITUTIONAL: Denies malaise, chills, sweats, or fever. EYES: Denies visual changes. Reports redness, pain to the right eye ENT: Denies rhinorrhea, congestion, sinus pain, otalgia or sore throat. SKIN: Denies rash or itching. NEUROLOGIC: Denies numbness, weakness, or headache. PSYCHIATRIC: Denies anxiety or depression. All systems reviewed & are unremarkable except as noted in HPI and below PMFSH Past Medical History Medical History Patient denies significant medical history Social History Social History Smoking status: Never smoker Gender identity (if verbalized by the patient): Male Comments At time of signature, agree with nursing past medical, surgical, social and family history. There is no relevant family history pertinent to the presenting complaint Exam Narrative: GENERAL: Well-appearing, well-nourished, and in no acute distress. HEAD: Normocephalic, atraumatic. EYES: PERRLA, sclera clear, and EOMI. No nystagmus. Right sclera injected, corneal abrasion noted upon Wood's lamp exam, see note. Upper and lower eyelid unremarkable, no periorbital edema noted ENT: Nares clear, turbinates pink, no rhinorrhea or epistaxis. Mucous membranes moist. TM pearly do with sharp light reflex bilaterally; no tragal tenderness. NECK: Supple. CHEST: No respiratory distress. Speaks in full sentences. HEART: Regular rate and rhythm. SKIN: Warm, dry, no visible rash. NEURO: Alert and oriented x3. PSYCH: Normal mood and affect Course Course Emergency Course: Patient is aware of diagnosis, understands and agrees to treatment plan. Anticipatory guidance given. Patient agrees to follow-up as directed and is aware of reasons to seek care at the emergency department. Portions of this record may have been created with voice recognition software Level of Care: Express Care Visit Vital Signs Vital signs: Reviewed. Procedures Other Procedure Procedure 1: Other Procedure: Tetracaine 1 gtt instilled in right eye, fluorescein stain applied. Corneal abrasion noted upon cote lamp exam at approximately 5 o'clock in relation to the pupil. Eye washed with NS 100 ml. No foreign bodies or Ronna sign noted. MDM - Eye Problem MDM Narrative Medical decision making narrative: Consideration of the following conditions may be warranted for the presenting problem, they are not final diagnoses: Bacterial conjunctivitis, allergic conjunctivitis, viral conjunctivitis, foreign body, blepharitis, chalazion, hordeolum, corneal abrasion, preseptal cellulitis, orbital cellulitis. No evidence of proptosis, ophthalmoplegia, vision loss, pain with eye movement. Exam findings show no acute concerns or changes; patient is non-toxic appearing and is in no distress. Patient is appropriate for outpatient treatment and follow-up. Critical Care Time Critical Care Time Critical Care Time: No Discharge Plan Discharge Clinical Impression: Corneal abrasion Patient Disposition: Home Condition: Stable Instructions: How to Use Eye Drops (ED) Additional Instructions: Corneal abrasions will heal in 1-2 days. Keep your eye shut and wear sunglasses or stay in low light to avoid light sensitivity. Do not touch or rub your eye or use a fabric patch You may take Tylenol or ibuprofen for pain Follow-up with PCP or fast food assistant restaurant manager if condition is not improving in 2-3days. Patient Language: Luxembourger Prescriptions: New polymyxin B sulf-trimethoprim 10,000 unit- 1 mg/mL drops 1 drp RIGHT EYE Q3H 7 Days Qty: 10 0RF Rx Instructions: while awake; do not exceed 6 doses in 24 hours Follow-up/Referrals: Fernando Scott MD [Primary Care Provider, [facility]] Time of Disposition: 10:28
--- OUTSIDE RECORDS SUMMARY | 2025-06-04 09:58 | XMS_ITS | Clinical Summary ---
Author Organization [facility] Address [address] [place] [address] Care Team Providers Care Treatment Counselor Name Role Phone Fernando Scott MD Primary Care Provider [phone] Source Comments [facility],non-owned Affiliates and Associated Physician Practices is amultiple site organization consisting of ambulatory clinics and hospital sitesin [place], [place], [place] and [place]. This disclosure is being madepursuant to the Care Everywhere program and may not contain all information available regarding this patient. Last updated 18.[facility] Allergies Active Allergy Reactions Criticality Noted Date Comments Penicillins Urticaria Medium 10/01/2024 Medications * Be aware that medications may not be up to date on this document. Alwaysverify current medications with the patient. ibuprofen (Motrin) 800 MG tablet Take 1 (one) tablet by mouth 3 times daily as needed with food for Pain 60 tablet 5 Active pregabalin (Lyrica) 75 MG capsule Take 1 (one) capsule by mouth 2 times daily for 10 days 20 capsule 5 Active docusate sodium (Colace) 100 MG capsule Take 1 (one) capsule by mouth once daily as needed for Constipation Hold for loose stools. 30 capsule 5 Active acetaminophen (Tylenol) 500 MG tablet Take 1 (one) tablet by mouth 3 times daily Maximum allowable Acetaminophen amount = 4 Grams (4000 mg) / 24 hours. 5 Active HYDROcodone-ac etaminophen ([place]am) 5-325 MG tabletIndicati ons:Other closed intra-articula r fracture of distal end of right radius with delayed healing, subsequent encounter Take 1 (one) tablet to 2 (two) tablets by mouth every 6 hours as needed for Pain (Moderate or Severe pain) 30 tablet Active Active Problems Problem Noted Date Diagnosed Date Fall, initial encounter 10/02/2024 Closed fracture of distal en d of left radius, unspecified fracture morphology, initial encounter 10/02/2024 Closed nondisplaced fracture of styloid process of right radius, initial encounter 10/02/2024 Pneumothorax, unspecified type 10/02/2024 Multiple closed fractures of facial bone, initia l encounter 10/02/2024 Immunizations Immunization Administration Dates Next Due TDAP (7yrs+) 10/01/2024(Deferred: Patient Ref used) Social History Tobacco Use Types Packs/Day Years Used Date Smoking Tobacco: Never Smokeless Tobacco: Never Tobacco Cessation:Counseling Given: Not Answered Comments:Cigarello wrap Alcohol Use Standard Drinks/Week Comments Yes 6 (1 standard drink = 0.6 oz pur e alcohol) PHQ-2 Answer Date Recorded Patient Health Questionnaire-2 Score 0 12/15/2024 Sex and Gender Information Value Date Recorded Sex Assigned at Not on file 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 Gender Identity Not on file Sexual Orientation Not on file Last Filed Vital Signs Vital Sign Reading Time Taken Comments Blood Pressure 116/75 02/05/2025 11:23 AM CDT Pulse 63 02/05/2025 11:23 AM CDT Temperature 36.2 C (97.2 F) 02/05/2025 9:56 AM CDT Respiratory Rate 16 02/05/2025 11:23 AM CDT Oxygen Saturation 97% 02/05/2025 11:23 AM CDT Inhaled Oxygen Concentration - - Weight 81.6 kg (180 lb) 02/05/2025 6:16 AM CDT Height 182.9 cm (6') 02/05/2025 6:16 AM CDT Body Mass Index 24.41 02/05/2025 6:16 AM CDT Plan of Treatment Health Maintenance Due Date Last Done Comments HIV SCREENING 2013 HEPATITIS C SCREENING 01/08/2016 DTAP/TDAP/TD VACCINES (1 - Tdap) 2017 HEPATITIS B VACCINE (1 of - 19+ 3-dose series) 2017 COVID-19 VACCINE (2023-2 5 season) 2024 HPV VACCINE (1 - 3-dose SCDM series) 2025 INFLUENZA VACCINE (#1) 2025 ZOSTER VACCINE (1 of 2) 01/13/2048 DEPRESSION SCREENING Completed 12/15/2024 HIB VACCINE Aged Out No longer eligi ble based on patient's age to complete this topic MENINGOCOCCAL (Group B) VACC INE SHARED DECISION-MAKING Aged Out No longer eligibl e based on patient's age to complete this topic MENINGOCOCCAL GROUPS A/C/Y/W VACCINE Aged Out No longer eligible b ased on patient's age to complete this topic PNEUMOCOCCAL VACCINE Aged Out No long er eligible based on patient's age to complete this topic Medical Devices Implanted Type Area Bee Farmer Device Identifier Shelf Expiration Date Model / Serial / Lot Plate Va Rds Rt Volr Dist [id number] Std Implanted:Qty: 1 on 02/05/2025 by Anel Rdz MD at [facility] Right: Hand Acumed [id number] / / Description:from screw box Screw 2.3mm 24mm Ft Sree Lck Hex Ti Implanted:Qty: 1 on 02/05/2025 by Anel Rdz MD at [facility] Right: Hand Acumed CO-T2324 / / Description:from screw box Screw 3.5mm 16mm Lck Hxlb Cortx Ti Implanted:Qty: 1 on 02/05/2025 by Anel Rdz MD at [facility] Right: Hand Acumed [id number] / / Description:from screw box Screw 2.3mm 18mm Ft Sree Lck Hex Ti Implanted:Qty: 1 on 02/05/2025 by Anel Rdz MD at [facility] Right: Hand Acumed CO-T2318 / / Description:from screw box Screw 2.3mm 20mm Ft Sree Lck Hex Ti Implanted:Qty: 2 on 02/05/2025 by Anel Rdz MD at [facility] Right: Hand Acumed CO-T2320 / / Description:from screw box Screw 2.3mm 24mm Ft Sree Lck Hex Ti Implanted:Qty: 1 on 02/05/2025 by Anel Rdz MD at [facility] Right: Hand Acumed CO-T2324 / / Description:from screw box Screw 3.5mm 18mm Hxlb Cortx Ti Nonster Implanted:Qty: 2 on 02/05/2025 by Anel Rdz MD at [facility] Right: Hand Acumed / / Description:from screw box Explanted Type Area Bee Farmer Device Identifier Shelf Expiration Date Model / Serial / Lot Screw 3.5mm 14mm Lck Hxlb Cortx Ti Explanted:Qty: 1 on 10/16/2024 at [facility] Left: Radius Acumed [id number] / / Aculoc Wrist Spanning Plate System Implanted:Qty: 1 on 10/16/2024 by Anel Rdz MD at [facility] Explanted:Qty: 1 on 01/13/2025 by Anel Rdz MD at [facility] Left: Radius [id number]- [id number] / / [id number] Screw 2.7mm 16mm Lck Hxlb Ti Nonster Sm Implanted:Qty: 1 on 10/16/2024 by Anel Rdz MD at [facility] Explanted:Qty: 1 on 01/13/2025 by Anel Rdz MD at [facility] Left: Radius Acumed [id number] / / Screw 2.7mm 14mm Nlckg Hxlb Elb Nonster Implanted:Qty: 2 on 10/16/2024 by Anel Rdz MD at [facility] Explanted:Qty: 2 on 01/13/2025 by Anel Rdz MD at [facility] Left: Radius Acumed [id number] / / 2.7 X 12 Va Screw Implanted:Qty: 1 on 10/16/2024 by Anel Rdz MD at [facility] Explanted:Qty: 1 on 01/13/2025 by Anel Rdz MD at [facility] Left: Radius Acumed [id number] / / Screw 3.5mm 16mm Lck Hxlb Cortx Ti Implanted:Qty: 3 on 10/16/2024 by Anel Rdz MD at [facility] Explanted:Qty: 3 on 01/13/2025 by Anel Rdz MD at [facility] Left: Radius Acumed 30-0236 / / Gw Orth 6in .054in Ss 1 Troc Implanted:Qty: 3 on 10/16/2024 by Anel Rdz MD at [facility] Explanted:Qty: 3 on 01/13/2025 by Anel Rdz MD at [facility] Left: Radius Acumed [id number] / / Screw 3.5mm 16mm Hxlb Cortx Ti Nonster Implanted:Qty: 1 on 10/16/2024 by Anel Rdz MD at [facility] Explanted:Qty: 1 on 01/13/2025 by Anel Rdz MD at [facility] Left: Radius Acumed 30-0259 / / Screw 2.3mm 26mm Sree Ti Bone Explanted:Qty: 2 on 02/05/2025 by Anel Rdz MD at [facility] Right: Hand Acumed CO-N2326 / / Description:from screw box Screw 3.5mm 16mm Hxlb Cortx Ti Nonster Explanted:Qty: 1 on 02/05/2025 by Anel Rdz MD at [facility] Right: Hand Acumed 1 / / Description:from screw box Screw 3.5mm 14mm Lck Hxlb Cortx Ti Explanted:Qty: 1 on 02/05/2025 by Anel Rdz MD at [facility] Right: Hand Acumed 8468 / / Description:from screw box Advance Directives * Full Code (Latest Code Status on File) Date Activated Date Inactivated Comments 10/02/2024 3:09 AM 10/02/2024 11:41 AM Care Teams Treatment Counselor Relationship Specialty Start Date End Date Fernando Scott MD [address] [place] [id number] PCP - General Family Medicine 11/03/24
--- OUTSIDE RECORDS SUMMARY | 2025-06-04 09:58 | XMS_ITS | Encounter Summary ---
Author Organization [facility] Address [address] [place] [address] Care Team Providers Care Correctional Casework Specialist Name Role Phone None, Physician Primary Care Provider Fernando Knowles MD Primary Care Provider [phone] Encounter Details Date Type Department Care Team (Late st Contact Info) Description 10/02/2024 Ophth Exam [facility] - Ophthalmology [address] [place] [id number] Wilman Webber MD [address] [place] [address] Social History Tobacco Use Types Packs/Day Years Used Date Smoking Tobacco: Never Assessed Sex and Gender Information Value Date Recorded Sex Assigned at Not on file 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
[2025-06-04 09:59] VITALS: BP 118/77; PULSE 83; RESP 18; TEMP 36.3; O2SAT 100
== END 2025-06-04 10:30 | disposition home or self-care (01) ==
PROVIDERS: Emergency Provider Nurse Practitioner; PCP Family Medicine
DX: S05.01XA Injury of conjunctiva and corneal abrasion without foreign body, right eye, initial encounter (principal); W22.8XXA Striking against or struck by other objects, initial encounter; Y99.0 Civilian activity done for income or pay
CPT/HCPCS: 99213; A9270; G0463

== ENCOUNTER 2025-08-30 14:30 | Emergency (ER) | payer SELFPAY ==
--- NOTE | 2025-08-30 14:32 | ED.EAR ---
HPI - Ear Problem General Chief complaint: Ear Stated complaint: R Ear Source: patient and RN notes reviewed Mode of arrival: ambulatory Limitations: no limitations History of Present Illness HPI Narrative: Patient is a 25 year old male who presents to the [facility] with complaints of right ear pain. Patient states that the pain started today. He states that last week he did have some mild nasal congestion and drainage. He reports decreased hearing in his right ear. Denies ear drainage. Denies recent fevers. Related Data Allergies Allergy/AdvReac Type Severity Reaction Status Date / Time Penicillins Allergy Mild Hives Verified 08/30/25 14:36 Review of Systems Review of Systems: CONSTITUTIONAL: Denies fever, chills, or sweats. EYES: Denies visual changes, redness, or discharge. ENT: Reports otalgia but denies sore throat CARDIOVASCULAR: Denies chest pain, palpitations, or edema. RESPIRATORY: Denies cough or dyspnea. GASTROINTESTINAL: Denies abdominal pain, nausea, vomiting, or diarrhea. GENITOURINARY: Denies dysuria or hematuria. SKIN: Denies rash or itching. MUSCULOSKELETAL: Denies back pain, joint pain, or myalgia. NEUROLOGIC: Denies headache, numbness, or weakness. Pertinent positives per HPI. [facility] Past Medical History Medical History Patient denies significant medical history Social History Social History Smoking status: Never smoker Gender identity (if verbalized by the patient): Male Comments At the time of my signature, I reviewed and agree with the nursing past medical, surgical, social, and family history. There is no relevant family history pertinent to the patient complaint. Exam Narrative: GENERAL: This is a well-nourished, well-developed patient, in no apparent distress. HEAD: normocephalic, atraumatic. EYES: Sclera clear/white. Vision is grossly intact. EARS: External ears normal. Bilateral TMS erythematous; right TM bulging. Hearing grossly intact. NOSE: External nose normal with no obvious nasal discharge, nares without redness, no rhinorrhea. THROAT: Mucous membranes moist, posterior pharynx clear. NECK: Neck supple, non-tender without lymphadenopathy, masses or thyromegaly. CARDIOVASCULAR: Regular rate and rhythm without murmurs, gallops, or rubs. RESPIRATORY: Clear to auscultation. Breath sounds equal bilaterally. No wheezes, rales, or rhonchi. GASTROINTESTINAL: Abdomen soft, non-tender, nondistended. Bowel sounds are active. No hepato-splenomegaly, or palpable masses. No guarding. SKIN: warm, intact with no suspicious lesions or rash, good texture and turgor. NEURO: awake, alert, and oriented to person, place and time. There were no obvious focal neurologic abnormalities. Course Course Level of Care: Express Care Visit Vital Signs Vital signs: Vital Signs Temperature 98.3 F 08/30/25 14:36 Pulse Rate 72 08/30/25 14:36 Respiratory Rate 18 08/30/25 14:36 Blood Pressure 131/79 08/30/25 14:36 Pulse Oximetry 98 08/30/25 14:36 Oxygen Delivery Room Air 08/30/25 14:36 Temperature 98.3 F 08/30/25 14:36 Pulse Rate 72 08/30/25 14:36 Respiratory Rate 18 08/30/25 14:36 Blood Pressure 131/79 08/30/25 14:36 Pulse Oximetry 98 08/30/25 14:36 Oxygen Delivery Room Air 08/30/25 14:36 Reviewed Medical Decision Making MDM Narrative Medical decision making narrative: Take antibiotics as directed. May given ibuprofen and/or Tylenol as needed for pain and/or fever. Follow up with primary care provider in 7-10 days to have ear rechecked. Differential Diagnosis Differential Diagnosis: otitis media, otitis externa, cerumen impaction Vital Signs Vital Signs: Vital Signs Temperature 98.3 F 08/30/25 14:36 Pulse Rate 72 08/30/25 14:36 Respiratory Rate 18 08/30/25 14:36 Blood Pressure 131/79 08/30/25 14:36 Pulse Oximetry 98 08/30/25 14:36 Oxygen Delivery Room Air 08/30/25 14:36 Temperature 98.3 F 08/30/25 14:36 Pulse Rate 72 08/30/25 14:36 Respiratory Rate 18 08/30/25 14:36 Blood Pressure 131/79 08/30/25 14:36 Pulse Oximetry 98 08/30/25 14:36 Oxygen Delivery Room Air 08/30/25 14:36 Critical Care Time Critical Care Time Critical Care Time: No Discharge Plan Discharge Clinical Impression: Acute right otitis media Patient Disposition: Home Condition: Stable Instructions: Antibiotic Form, Ear Infection (ED) Additional Instructions: Take antibiotics as directed. May given ibuprofen and/or Tylenol as needed for pain and/or fever. Follow up with primary care provider in 7-10 days to have ear rechecked. Patient Language: [place] Citizen Prescriptions: New cefdinir 300 mg capsule 300 mg PO Q12H 10 Days Qty: 20 0RF Follow-up/Referrals: Fernando Scott MD [Primary Care Provider, [facility]] Time of Disposition: 14:43
[2025-08-30 14:36] VITALS: BP 131/79; PULSE 72; RESP 18; TEMP 36.8; O2SAT 98
== END 2025-08-30 14:47 | disposition home or self-care (01) ==
PROVIDERS: Emergency Provider Nurse Practitioner; PCP Family Medicine
DX: H66.91 Otitis media, unspecified, right ear (principal)
CPT/HCPCS: 99213; G0463